=== PATIENT | male | born 1950 | race Caucasian/White ===

== ENCOUNTER → 2017-12-24 | Outpatient (CLI) | payer MEDICARE, BC ==
[~2017-12-24] MED LIST: ASA81 MG PO; DITROPAN PO; FLOMAX0.4 MG PO; GLIPIZIDE5 MG PO; LISINOPRIL10 MG PO; LISINOPRIL2.5 MG PO; METFORMIN HCL500 MG PO; OXYBUTYNIN CHLOR5 MG PO; PERCOCET 10-321 EACH PO; PYRIDIUM100 MG PO; ULTRAM 50MG50 MG PO; XYZAL5 MG PO; Z.0.JANUMET 50-1,01 PO; [UNRECOGNIZED DRUG - CODE] PO; [UNRECOGNIZED DRUG - OTHER] PO
[2017-12-24 12:07] LABS: BILIRUBIN,DIRECT 0.2 mg/dL (0.0-5.0)
== END ==
LOC: LAB 11:28
PROVIDERS: ATTEND Podiatrist Foot & Ankle Surgery
DX: L60.5 Yellow nail syndrome (principal); L60.3 Nail dystrophy
CPT/HCPCS: 36415; 80076

== ENCOUNTER 2018-10-01 19:45 | Emergency (ER) | payer MEDICARE, BC ==
[~2018-10-01] VITALS: Ht 177.8 cm; Wt 137.4 kg
[2018-10-01] MEDS ORDERED: KETOROLAC TROMETHAMINE 30 MG/ML VIAL IV NR (20:30)
[2018-10-01 20:38] LABS: BASOPHILS # (AUTO) 0.1 (0.0-0.1); BASOPHILS % 0.7 % (0.0-1.0); EOSINOPHILS # (AUTO) 0.3 (0.0-0.4); EOSINOPHILS % 4.4 % (0.0-6.0); HEMATOCRIT 43.3 % (38.2-49.6); HEMOGLOBIN 14.7 g/dL (14.0-18.0); LYMPHOCYTES % 27.9 % (18.0-39.1); MEAN CORPUSCULAR HEMOGLOBIN 32.7 pg (28-32); MEAN CORPUSCULAR HGB CONC 33.9 g/dL (31-35); MEAN CORPUSCULAR VOLUME 96.4 fL (81-99); MONOCYTES # (AUTO) 0.9 (0.2-0.8); MONOCYTES % 11.9 % (4.4-11.3); NEUTROPHILS % 54.8 % (38.7-80.0); PLATELET COUNT 199 x10e3/uL (140-360); RED BLOOD COUNT 4.49 x10e6/uL (4.3-5.7); RED CELL DISTRIBUTION WIDTH 12.9 % (11.7-14.4)
[2018-10-01 20:40] LABS: BILIRUBIN,URINE NEGATIVE (NEGATIVE); CLARITY,URINE CLEAR (CLEAR); COLOR,URINE YELLOW (YELLOW); KETONES,URINE NEGATIVE (NEGATIVE); LEUKOCYTE ESTERASE ,URINE NEGATIVE (NEGATIVE); NITRITE,URINE NEGATIVE (NEGATIVE); PROTEIN,URINE DIPSTICK NEGATIVE (NEGATIVE); URINE UROBILINOGEN 0.2 mg/dL (0.2 - 1)
[2018-10-01 20:58] LABS: ALANINE AMINOTRANSFERASE 21 IU/L (0-55); ALBUMIN 4.1 g/dL (3.5-5.0); ALKALINE PHOSPHATASE 48 IU/L (40-150); ANION GAP 12.1 mmol/L (8-16); BLOOD UREA NITROGEN 18 mg/dL (7-26); BUN/CREATININE RATIO 20 (6-25); CALCIUM 9.6 mg/dL (8.4-10.2); CARBON DIOXIDE 26 mmol/L (22-29); CHLORIDE 102 mmol/L (98-107); CREATININE, SERUM 0.91 mg/dL (0.72-1.25); EST GLOMERULAR FILTRATION RATE > 60 ML/MIN (60-); GLUCOSE 75 mg/dL (74-118); POTASSIUM 4.1 mmol/L (3.5-5.1); SODIUM 136 mmol/L (136-145)
--- NOTE | 2018-10-01 21:56 | Diagnostic Imaging Report ---
EXAM: CT Abdomen and Pelvis WITHOUT contrast INDICATION: Rule out kidney stone. Flank pain. COMPARISON: None. TECHNIQUE: Abdomen and pelvis were scanned utilizing a multidetector helical scanner from the lung base to the pubic symphysis without administration of IV contrast. Absence of intravenous contrast decreases sensitivity for detection of focal lesions and vascular pathology. Coronal and sagittal reformations were obtained. Routine protocol was performed. IV CONTRAST: None ORAL CONTRAST: Water COMPLICATIONS: None RADIATION DOSE: Total DLP: 1472.07 mGy*cm Estimated effective dose: (DLP x 0.015 x size factor) mSv CTDIvol has been reviewed. It is below the limits set by the Radiation Protocol Committee (RPC). FINDINGS: LINES and TUBES: None. LOWER THORAX: Medial basilar right lower lobe atelectasis or scarring. HEPATOBILIARY: Right hepatic 1.1 cm. No focal hepatic lesions. No biliary ductal dilation. GALLBLADDER: No radio-opaque stones or sludge. No wall thickening. SPLEEN: No splenomegaly. PANCREAS: No focal masses or ductal dilatation. ADRENALS: No adrenal nodules KIDNEYS/URETERS: No hydronephrosis. Left renal 5.2 cm cyst. Few punctate non-obstructing stones. GI TRACT: No abnormal distention, wall thickening, or evidence of bowel obstruction. Appendix is normal. PELVIC ORGANS/BLADDER: Brachytherapy seeds in the prostate. LYMPH NODES: No lymphadenopathy. VESSELS: There is mild atherosclerotic disease in the aorta and major arterial branches. PERITONEUM / RETROPERITONEUM: No free air or fluid. BONES: There are degenerative changes in the lumbar spine. SOFT TISSUES: Fat containing left inguinal hernia with encroachment of the left bladder wall. Fat containing umbilical hernia. IMPRESSION: 1. Left nephrolithiasis. No hydronephrosis. 2. No acute abnormalities. Signed by: DR. Abdiaziz Chapman MD on 10/01/2018 9:53 PM
[2018-10-01 23:20] VITALS: BP 127/100
== END 2018-10-01 23:41 | disposition home or self-care (01) ==
LOC: ER 19:45
DX: R10.32 Left lower quadrant pain (principal); M54.5 Low back pain; N20.0 Calculus of kidney; K40.90 Unilateral inguinal hernia, without obstruction or gangrene, not specified as recurrent; K42.9 Umbilical hernia without obstruction or gangrene; I10 Essential (primary) hypertension; E11.9 Type 2 diabetes mellitus without complications
CPT/HCPCS: 36415; 74176; 80053; 81001; 85025; 99284; J1885

== ENCOUNTER → 2024-10-21 | Outpatient (REF) | payer MEDICARE, BC ==
[~2024-10-21] MED LIST changes: +IOPAMIDOL 370 MG/ML 100 ML INFUS..BTL INJ ONE; +METOPROLOL TARTRATE INJ 1 MG/ML VIAL ONE; +NITROGLYCERIN 0.4 MG SUBL ONE
[2024-10-21 11:48] LABS: CREATININE, SERUM 0.83 mg/dL (0.72-1.25)
== END ==
LOC: CT 10:25
PROVIDERS: ATTEND Internal Medicine Cardiovascular Disease
DX: I25.10 Atherosclerotic heart disease of native coronary artery without angina pectoris (principal); R94.39 Abnormal result of other cardiovascular function study
CPT/HCPCS: 36415; 75574; 82565; 84520; Q9967